=== PATIENT | female | born 1965 | race Caucasian/White ===

== ENCOUNTER 2020-11-27 06:33 | Day surgery (SDC) | payer OTHER ==
[2020-11-26 12:23] VITALS: BMI 27.3
[2020-11-27] MEDS ORDERED: PROPOFOL 20 ML ONE ×2 (07:35)
[2020-11-27] MEDS ORDERED: SUCCINYLCHOLINE CHLORIDE 200 MG/10 ML SYRINGE ONE (07:35)
[2020-11-27] MEDS ORDERED: LIDOCAINE HCL/PF 2% SDV 5ML VIAL ONE (07:35)
[2020-11-27] MEDS ORDERED: MIDAZOLAM HCL 2 MG/2 ML SINGLE DOSE VIAL ONE (07:35)
[2020-11-27] MEDS ORDERED: ONDANSETRON 4 MG/2 ML VIAL IVPUSH PRN (08:51)
[2020-11-27] MEDS ORDERED: PROMETHAZINE HCL 25 MG/1 ML VIAL IVPUSH PRN (08:51)
[2020-11-27] MEDS ORDERED: oxyCODONE HCL 5 MG TABLET PO PRN (08:51)
[2020-11-27] MEDS ORDERED: ONDANSETRON 4 MG/2 ML VIAL ONE (09:07)
[2020-11-27 10:00] VITALS: TEMP 98.2
[2020-11-27 11:57] VITALS: BP 128/64; PULSE 76
== END 2020-11-27 11:00 | disposition home or self-care (01) ==
LOC: FASU 06:33
PROVIDERS: ATTEND Orthopaedic Surgery
PROC: 0SBC4ZZ Excision of Right Knee Joint, Percutaneous Endoscopic Approach (ICD-10-PCS; principal; 2020-11-27 08:19)
DX: M23.8X1 Other internal derangements of right knee (principal); S83.241A Other tear of medial meniscus, current injury, right knee, initial encounter; X58.XXXA Exposure to other specified factors, initial encounter; Y93.9 Activity, unspecified; Y92.9 Unspecified place or not applicable
CPT/HCPCS: 94760